=== PATIENT | male | born 1960 | race Caucasian/White ===

== ENCOUNTER → 2023-12-04 07:40 | Outpatient (REF) | payer OTHER, SELFPAY | LOC: RAD 07:40 | PROVIDERS: ATTENDING PHYSICIAN Thoracic Surgery (Cardiothoracic Vascular Surgery); FAMILY PHYSICIAN Physician Assistant | DX: J90 Pleural effusion, not elsewhere classified (principal) | CPT/HCPCS: 71260; Q9967 ==

== ENCOUNTER → 2024-12-23 06:27 | Outpatient (REF) | payer OTHER, SELFPAY | LOC: RAD 06:27 | PROVIDERS: ATTENDING PHYSICIAN Nurse Practitioner Family; FAMILY PHYSICIAN Family Medicine | DX: L08.9 Local infection of the skin and subcutaneous tissue, unspecified (principal) | CPT/HCPCS: 73630 ==

== ENCOUNTER 2024-12-23 21:41 | Inpatient (IN) | payer OTHER, SELFPAY ==
[2024-12-23 13:48] VITALS: BMI 26.7
[2024-12-23 13:54] VITALS: BP 132/79
[2024-12-23 14:10] LABS: % Basophils 1.1 % (0-2); % Eosinophils 2.9 % (0-6); % Immature Granulocytes 0.2 % (0-0.5); % Lymphocytes 26.8 % (20.5-51.1); % Monocytes 5.7 % (1.7-9.3); % Neutrophils 63.3 % (42.2-75.2); Absolute Basophils 0.1 10^3/uL (0-0.2); Absolute Eosinophils 0.2 10^3/uL (0-0.7); Absolute Lymphocytes 2.3 10^3/uL (1.2-3.4); Absolute Monocytes 0.5 10^3/uL (0.1-0.6); Absolute Neutrophils 5.3 10^3/uL (1.4-6.5); Hematocrit 37.5 % (39.0-52.0); Hemoglobin 12.7 g/dL (13.0-18.0); Mean Corp Hgb Conc. 33.9 g/dL (33.0-37.0); Mean Corpuscular Volume 82.8 fL (80.0-94.0); Mean Platelet Volume 11.3 fL (7.4-10.4); Nucleated Red Blood Cells % 0 % (-); Platelet Count 244 10^3/uL (130-400); Red Blood Cell Count 4.53 10^6/uL (4.70-6.10); Red Cell Dist. Width 12.1 % (11.5-14.5); White Blood Cell Count 8.4 10^3/uL (4.8-10.8)
[2024-12-23 14:33] LABS: ALT (SGPT) 19 U/L (0-50); AST (SGOT) 22 U/L (17-59); Albumin 4.1 g/dl (3.5-5.0); Alkaline Phosphatase 65 U/L (38-126); Blood Urea Nitrogen 31 mg/dl (9-20); Calcium 9.8 mg/dl (8.4-10.2); Carbon Dioxide 27 mmol/L (22-30); Chloride 106 mmol/L (98-107); Glucose 158 mg/dl (70-99); Potassium 3.9 mmol/L (3.5-5.1); Sodium 143 mmol/L (135-145); Total Bilirubin 0.4 mg/dl (0.2-1.3); eGFR 56.48
--- NOTE | 2024-12-23 17:01 | ED.GENMED ---
History of Present Illness
General
Chief Complaint: Skin Problem
Source: patient
Exam Limitations: none
Time Seen by Provider: 12/23/24 16:52
Nursing documentation reviewed up to this point in time: agreed with
History of Present Illness
History of Present Illness:
64-year-old male past medical history of hypertension diabetes presenting to the emergency department today with concerns of swelling worsening mainly over the past week but to some degree swollen over the past 2 weeks to the right fourth toe. Also
banged his toe yesterday. An outpatient x-ray showing a fracture and possible osteomyelitis. He denies systemic symptoms. Does have some ongoing pain. Has a chronic numbness to the area as well.
Past History
Past History
ED Past Medical History: HTN, Hypercholesterolemia and NIDDM
Social History
Tobacco: Former smoker
Alcohol: Occasional
Drug: None
Personal:
Living: with family
Employment: Other (the patient is a tractor-ready mix truck driver who findsthat taking metformin causes him diarrhea which is why he fails to take it.)
Review of Systems
Review of Systems
Allergies reviewed?: Yes
All Other Systems: ROS reviewed and negative except as documented in HPI and ROS
Phy Exam
Physical Exam
Physical Exam:
GENERAL: Alert , in no apparent distress
EYE: pupils equal and reactive
NECK: Supple, no significant adenopathy.
ENT: o/p clr, mmm.
CARDIAC: Regular rate and rhythm .
LUNGS: Clear breath sounds bilaterally, no acute respiratory distress, no wheezes/rales/rhonchi
ABDOMEN: Soft, without focal tenderness, no r/g, no cvat
NEUROLOGICAL: Alert and oriented, no focal neuro deficits
SKIN: Warm and dry, skin intact.
MUSCULOSKELETAL: Swelling tenderness to the right foot mainly surrounding the right fourth toe some extending into the foot itself.
PSYCH: Normal and appropriate interaction.
Course
Orders/Labs/Results
Orders:
Orders
12/23/24 14:01
Complete Blood Count/With Diff Urgent
Comprehensive Metabolic Panel Urgent
12/23/24 17:00
Piperacillin/Tazo 4.5 Gram [Zosyn] 4.5 gram in 100 ml IV NOW
12/23/24 17:01
Vancomycin [Vancocin] 2,000 mg 0.9% Sodium Chloride 500 ml [Nss] 500 ml IV NOW
12/23/24 17:05
Blood Culture Q30M
MIRTHA Source: Blood/Venous
Specimen Description:
Blood Culture Q30M
MIRTHA Source: Blood/Venous
Specimen Description:
12/23/24 17:17
Vasc Ltd W JASON Urgent
Comment:
Reason For Exam: right leg JASON
Abnormal Lab Results
12/23/24
14:01
RBC 4.53 L 10^6/uL
(4.70-6.10)
Hgb 12.7 L g/dL
(13.0-18.0)
Hct 37.5 L %
(39.0-52.0)
MPV 11.3 H fL
(7.4-10.4)
BUN 31 H mg/dl
(9-20)
Creatinine 1.4 H mg/dL
(0.7-1.3)
Glucose 158 H mg/dl
(70-99)
12/23/24 14:01
12/23/24 14:01
Vital Signs
Initial and Last Documented VS:
Initial Vital Signs
Temp Pulse Resp BP Pulse Ox
98.2 F 77 16 132/79 98
12/23/24 13:54 12/23/24 13:54 12/23/24 13:54 12/23/24 13:54 12/23/24 13:54
Last Documented Vital Signs
Temp Pulse Resp BP Pulse Ox
98.2 F 77 16 132/79 98
12/23/24 13:54 12/23/24 13:54 12/23/24 13:54 12/23/24 13:54 12/23/24 13:54
MDM/Problems Addressed
MDM/Problems Addressed:
64-year-old male presenting to the emergency department today with concerns of swelling discomfort to the right fourth toe worsening over the past 2 weeks. Also hit his toe the other day and had an x-ray as an outpatient showing a potential
fracture as well as possible osteo-. Case discussed with podiatry and admitted for IV antibiotics
*Critical Care Note
Total Time (30-74mins, 75-104mins- exclusive of procedures): Not Applicable
ED Attending Note
-
Portions of this chart may have been created with voice recognition software.� Occasional wrong word or��sound alike� substitutions may have occurred due to the inherent limitations of voice recognition software.
Discharge Plan
Departure
Patient Disposition: Admit
Date of Disposition: 12/23/24
Time of Disposition: 17:19
Admit to: Med/Surg
Admit to doctor: Gauravy
Presentation/result/management discussed w/ accepting MD/DO: Hospitalist
Patient with high blood pressure during this ER visit?: No
Condition: Good
Covid-19: Not Applicable
Discharge Problem:
Acute osteomyelitis of toe
Prescriptions:
No Action
metformin 1,000 mg Tablet
1,000 mg PO BID@0800,1700
glipizide 10 mg Tablet
10 mg PO BID@0800,1700
aspirin 81 mg Tablet,Delayed Release (Dr/Ec)
81 mg PO DAILY
atorvastatin 10 mg Tablet
10 mg PO HS
lisinopril 20 mg Tablet
20 mg PO BID@0800,1700 Qty: 60 0RF
benzonatate 100 mg Capsule
100 mg PO TIDPRN PRN (Reason: cough) Qty: 30 0RF
Ertapenem [Invanz] 1000 MG
0.9% Sodium Chloride [Nss] 50 ML
120 mls/hr IV Q24H
Reason for use: Infection
Ordered By: Nubia Umaña MD
Last Taken: Unknown
oxycodone 5 mg tablet
5 mg PO Q8H PRN (Reason: moderatepain) Qty: 20 0RF
Interventions
Interventions:
*Risk Screen - Suicide Last Done: 12/23/24 13:54
*General Assessment Last Done: 12/23/24 13:54
*Neglect/Abuse Screening Last Done: 12/23/24 13:54
*ED COVID-19 Vaccine History Last Done: 12/23/24 13:54
Discharge Date and Time
Print Language: BURUNDIAN
[2024-12-23] MEDS: ZOSYN 100 IV (17:08)
[2024-12-23] MEDS: VANCOCIN 540 MG IV (17:38)
--- NOTE | 2024-12-23 18:23 | W.CS.POD ---
Consult Summary - Podiatry
-
64-year-old male past medical history of hypertension diabetes presenting to the emergency department today with increasing swelling, worsening of the Rt 4th toe ,mainly over the past week, He states that he wears steel toe shoes which may have
caused the problem, HE noticed this small ulcer about 2 to 3 wks wks ago , HE saw his PCP and was told to get admitted to the hosp for management. He is diabetic for over 10 yrs and he states that his HbA1c around 6.5. HE takes PO meds for diabetes.
He denies any fever, chills. HE has some drainage and edematous Rt 4th toe
Reviewed PMH, meds and allergies
Exam ; Rt foot edematous
Rt foot diminished pedal pulses probably due to edema
Rt 4th toe dorsal aspect with purulent draining ulcer, edematous toe,
No other open ulcerations noted.
WBC count is WNL
Xrays showing Rt 4th toe middle phalanx erosive changes, possible osteomyelitis
A/p: Diabetic ulcer with Rt 4th ht toe osteomyelitis
rt foot cellulitis
Plan : Patient evaluated
Pending Non invasive vascular studies
Will request ID consult
Discussed with patient for possible debridement and assisted abx due to bone infection
Will schedule him for debridement and bone cultures after medical clearance
[2024-12-23 19:37] VITALS: BP 172/79
--- NOTE | 2024-12-23 19:38 | EDRN ---
Report received, introduced myself to patient, he walked into restroom without difficulty, resting comfortably with family at bedside, waiting on admission
--- NOTE | 2024-12-23 20:21 | HPS.HSE ---
Addendum entered and electronically signed by Nato Coombs MD 12/23/24 22:18:
see updated note
Original Note:
Family Physician
-
Family Physician: Danny Verde
Chief Complaint
-
right 4th toe pain and swelling
History of Present Illness
Patient is a 64-year-old male with past medical history significant for hypertension and DM II who presented to [facility] ED for evaluation of right fourth toe pain and swelling. Patient reports that he started with a small area on right 4th toe
approximately 2 weeks ago, he was cleaning wound with peroxide and using Neosporin and keeping as clean as possible. He states he believes to open area started from steel tip boots he wears from rubbing. He reports that this week he noticed
increased swelling to the toe and foot so called and made appointment with primary who sent him for foot x-ray and prescribed antibiotics. He states she called him this afternoon when she got results from x-ray and instructed him to report to ED for
evaluation and treatment. Patient denies any fever, chills, cough, shortness of breath, chest pain, nausea, vomiting, diarrhea or urinary symptoms.
Medical History
Past Medical History
Past Medical History: Reports Other
Additional Past Medical History:
essential hypertension
DM-II
Past Surgical History: Reports Other
Additional Past Surgical History:
lipoma [address], thoracentesis 07/26/23 and 07/28/23, Culture was negative for bacterial growth. Cytology was also negative, lytic therapy twice
Loculated Left effusion/probable empyema S/P 10F pigtail placement by IR, 09/16/23, upsized to 16F by IR 09/20/23 09/16/23
Social History
Tobacco: Former Smoker (quit 15 years ago )
Alcohol: None
Drug: None
Personal:
Living: With Family
Employment: Employed
Family History
Family History: Not pertinent
Allergies / Home Medications
Allergies reflects when Allergies were last updated in [facility].
Home Medications with original date entered in [facility]
Allergy/Medication List:
Allergies
Allergy/AdvReac Type Severity Reaction Status Date / Time
No Known Allergies Allergy Verified 12/23/24 13:58
Home Medications
metformin 1,000 mg tablet 1,000 mg PO BID@0800,1700 Diabetes 05/23/11
aspirin 81 mg tablet,delayed release 81 mg PO DAILY Blood Clot Prevention/Tx 07/25/23
atorvastatin 10 mg tablet 10 mg PO HS High Cholesterol 07/25/23
glipizide 10 mg tablet 10 mg PO BID@0800,1700 Diabetes 07/25/23
lisinopril 20 mg-hydrochlorothiazide 25 mg tablet 1 tab PO BID 12/23/24
testosterone 1 % (50 mg/5 gram) transdermal gel packet 1 packet transdermal DAILY 12/23/24
Review of Systems
-
History Source: Patient
Musculoskeletal: Reports Other (right 4th toe pain and swelling )
Physical Exam
Vital Signs
Vital Signs
Temp Pulse Resp BP Pulse Ox
98.2 F 60 16 172/79 99
12/23/24 13:54 12/23/24 19:37 12/23/24 19:37 12/23/24 19:37 12/23/24 19:37
Physical Exam
General: Well Developed, Well Nourished, No Apparent Distress, Comfortable and Conversant
HEENT: NormoCephalic, Moist mucous membranes, Atraumatic, [place] Conjunctivae, Nose Appears Normal and Ears Appear Normal
Respiratory: Clear
Cardiac: S1/S2 and Regular Rhythm; No Murmur or Rub
Breast: Deferred by me
GI: Soft, Non Tender, Non Distended and Normal Bowel Sounds; No Organomegaly
Rectal: Deferred by Provider
Genito-urinary: Deferred by me
Musculoskeletal: No Clubbing, No Cyanosis and Edema, Right Lower Extremity (right foot and toes )
Skin: Lesions (right 4th toe wound with surrounding erythema and is edematous )
Neuro: Awake, Alert, AO x 3 and Nonfocal/grossly intact
Psych: Calm and Intact Judgment/Insight
Laboratory Results
-
12/23/24 14:
12/23/24 14:01
Laboratory Results
Total Bilirubin 0.4 mg/dl (0.2-1.3) 12/23/24 14:
AST 22 U/L (17-59) 12/23/24 14:
ALT 19 U/L (0-50) 12/23/24 14:
Alkaline Phosphatase 65 U/L (38-126) 12/23/24 14:01
Data Reviewed
-
Diagnostic Radiology: Report Reviewed by me (Rt Foot: Mildly displaced fracture through the distal aspect of the mid right fourth phalanx. There appears to be some erosions involving distal aspect of the fourth toe, raising concern for
osteomyelitis. Significant soft tissue edema of the right fourth toe. Questionable well-corticated erosion a)
Lab Data: Labs Reviewed by me (WBC 8.4, Neut 63.3, BUN 31, Creat 1.4)
Impression/Plan
-
IMPRESSION/PLAN:
#right 4th toe pain and swelling
#cellulitis vs. osteomyelitis
Rt foot x-ray: Mildly displaced fracture through the distal aspect of the mid right fourth phalanx. There appears to be some erosions involving distal aspect of the fourth toe, raising concern for osteomyelitis.
Significant soft tissue edema of the right fourth toe.
Questionable well-corticated erosion along the medial aspect of the first metatarsal head, suggesting it maybe chronic in nature and related to gouty arthropathy. Mild narrowing of the right first
MTP joint.
Blood Cx: pending
- Admit to med/surg
- Consult Podiatry
- Consult ID
- IV antibiotics
- NPO at midnight for possible OR
#acute kidney injury
BUN 31, Creat 1.4
- IVF
- monitor BMP
#essential hypertension
- continue lisinopril- HCTZ
#DM II
- hold glipizide and metformin
- continue atorvastatin
- AccuCheck AC & HS
- SSI
Code status: full code
DVT prophylaxis: SCDs
--- NOTE | 2024-12-23 21:00 | EDRN ---
Admitting provider at bedside working on admission
--- NOTE | 2024-12-23 21:53 | EDRN ---
No delay sent to the floor
--- NOTE | 2024-12-23 22:18 | W.PN.UPDATE ---
Update Note
Progress Note Update
I saw and examined the patient.
The POULTRY CULLER or PA's note was reviewed and I agree with the note.
HPI
64 Diabetic M for evaluation of right fourth toe pain and swelling
Vital Signs
Temp Pulse Resp BP Pulse Ox
98.2 F 60 16 172/79 99
12/23/24 13:54 12/23/24 19:37 12/23/24 19:37 12/23/24 19:37 12/23/24 19:37
PE
General: No Apparent Distress
HEENT: Atraumatic
Respiratory: Clear
Cardiac: S1/S2 and RRR
Breast: Deferred by me
GI: Soft, Non Tender, Non Distended
Rectal: Deferred by Provider
Deferred by me
MS: Edema, Right Lower Extremity (right foot and toes )
Skin:Rt 4th toe wound with surrounding erythema and is edematous )
Neuro: Awake, Alert, AO x 3 and Nonfocal/grossly intact
Psych: Calm and Intact Judgment/Insight
Labs
09/24/23 12/23/24
05:01 14:01
WBC 8.4
Hgb 12.7 L
Plt Count 244
BUN 31 H
Creatinine 0.7 1.4 H
eGFR 56.48
Glucose 158 H
Rt foot x-ray:
- Mildly displaced fracture through the distal aspect of the mid right fourth phalanx. T
- here appears to be some erosions involving distal aspect of the fourth toe, raising concern for osteomyelitis.
- Significant soft tissue edema of the right fourth toe.
ASSESSMENT & PLAN
Diabetic foor infection due to Rt 4th toe cellulitis complicate with OM
- BCx pending
- First dose of IV vancomycin and Zosyn per ER - hold further ABx till see by ID
- NPO at midnight for possible OR
- Digital Marketing Assistant consulted and ordered Non invasive vascular imaging
- ID consult
KALLI with BUN 31, Creat 1.4
- IV NS
- trench Cr
Essential HTN
- c/w lisinopril- HCTZ
DMT2
- hold glipizide and metformin
- add ISS low
- AccuCheck AC & HS
HLD
- continue atorvastatin
DVT prophylaxis: SCDs
Full code
IP MS
[2024-12-23 22:20] VITALS: BP 165/88; BMI 26.1
[2024-12-23 22:25] LABS: Glucose - Point of Care 115 mg/dl (70-99)
[2024-12-23] MEDS: NSS 1000 IV (22:42)
[2024-12-23] MEDS: LIPITOR 10 MG PO (22:42)
[2024-12-23 23:37] VITALS: BP 149/72
--- NOTE | 2024-12-23 23:47 | PTCARENOTE ---
Receive pt from ER. Pt alert oriented X3, calm, in no distress. Pt assisted to his bed, steady gait. Pt oriented to the room, call paredes within reach. Pt denies pain. Right 4th toe swelling, with a diabetic ulcer, no drainage noted, no redness. VSS
(T=98, HR=59, RR=18, MY=300/72, SpO2=98% on RA). IVFs infusing as per order. Will continue to monitor the pt.
[2024-12-24] VITALS (12 sets, daily range): BP systolic 12–167; BP diastolic 53–87
[2024-12-24 05:05] LABS: Glucose - Point of Care 108 mg/dl (70-99)
[2024-12-24 06:57] LABS: Hematocrit 37.2 % (39.0-52.0); Hemoglobin 12.5 g/dL (13.0-18.0); Mean Corp Hgb Conc. 33.6 g/dL (33.0-37.0); Mean Corpuscular Hgb 27.8 pg (27.0-31.0); Mean Corpuscular Volume 82.9 fL (80.0-94.0); Mean Platelet Volume 11.1 fL (7.4-10.4); Platelet Count 215 10^3/uL (130-400); Red Blood Cell Count 4.49 10^6/uL (4.70-6.10); Red Cell Dist. Width 12.1 % (11.5-14.5); White Blood Cell Count 5.6 10^3/uL (4.8-10.8)
[2024-12-24 07:26] LABS: Blood Urea Nitrogen 23 mg/dl (9-20); Calcium 9.3 mg/dl (8.4-10.2); Carbon Dioxide 23 mmol/L (22-30); Chloride 106 mmol/L (98-107); Estimated Creatinine Clearance 100 ml/min; Glucose 138 mg/dl (70-99); Potassium 4.1 mmol/L (3.5-5.1); Sodium 139 mmol/L (135-145); eGFR > 60.00
[2024-12-24] MEDS: ZESTRIL 20 MG PO ×2 (08:44→21:26)
[2024-12-24] MEDS: ASPIR LOW (ENTERIC COATED) 81 MG PO (08:44)
--- NOTE | 2024-12-24 09:26 | W.PN.HOSP.TC ---
Addendum entered and electronically signed by Narinder Carrera MD 12/24/24 15:44:
Discussed with podiatry today and he can go for surgery from medical standpoint.
He has no contraindications such as SC, severe valvulopathy, arrhythmias, or heart failure. He has good exercise tolerance without exertional cp or dyspnea. His RCRI class I with 3.9% risk of , SC, or cardiac arrest. If he uses insulin
presurgery his risk goes up to 6%. I'll order stat EKG preop and nothing else needed.
Original Note:
Today's Communication/Plan
-
IV antibiotics. Podiatry reeval. ID eval.
Assessment / Plan
Assessment / Plan
Physical Exam
General: Well Developed, Well Nourished, No Apparent Distress, Comfortable and Conversant
HEENT: NormoCephalic, Moist mucous membranes, Atraumatic, [place] Conjunctivae, Nose Appears Normal and Ears Appear Normal
Respiratory: Clear
Cardiac: S1/S2 and Regular Rhythm; No Murmur or Rub
Breast: Deferred by me
GI: Soft, Non Tender, Non Distended and Normal Bowel Sounds; No Organomegaly
Rectal: Deferred by Provider
Genito-urinary: Deferred by me
Musculoskeletal: No Clubbing, No Cyanosis and Edema, Right Lower Extremity (right foot and toes )
Skin: Lesions (right 4th toe wound with surrounding erythema and is edematous )
Neuro: Awake, Alert, AO x 3 and Nonfocal/grossly intact
Psych: Calm and Intact Judgment/Insight
A/P:
#right 4th toe pain and swelling
#cellulitis vs. osteomyelitis
Rt foot x-ray: Mildly displaced fracture through the distal aspect of the mid right fourth phalanx. There appears to be some erosions involving distal aspect of the fourth toe, raising concern for osteomyelitis.
Significant soft tissue edema of the right fourth toe.
Questionable well-corticated erosion along the medial aspect of the first metatarsal head, suggesting it maybe chronic in nature and related to gouty arthropathy. Mild narrowing of the right first
MTP joint.
Blood Cx: pending
- Admit to med/surg
- Consult Podiatry
- Consult ID
- IV antibiotics
- NPO as recommended by podiatry
#acute kidney injury
BUN 31, Creat 1.4
- IVF
- monitor BMP
#essential hypertension
- continue lisinopril- HCTZ
#DM II
- hold glipizide and metformin
- continue atorvastatin
- AccuCheck AC & HS
- SSI
Code status: full code
DVT prophylaxis: SCDs
Total time spent on today's encounter was 52 minutes which included time spent in counseling the patient/family regarding diagnosis and treatment plan as listed above, goals of care, and symptom management. Case was discussed with nursing staff,
specialists, and care coordinators/case management. All labs and imaging personally reviewed by me. Remainder the time spent in detailed review of previous records, lab data, imaging, and other medical provider documentation.
Anticipated Discharge: > 48 hours
Subjective/Interval History
-
Date of Service: December 24, 2024
Patient denies any chest pain shortness of breath. Afebrile
Objective Data
-
Labs:
Laboratory Results
12/24/24 12/24/24
06:43 06:44
WBC 5.6
Hgb 12.5 L
Hct 37.2 L
Plt Count 215
Sodium 139
Potassium 4.1
Chloride 106
Carbon Dioxide 23
BUN 23 H
Creatinine 0.9
Glucose 138 H
Calcium 9.3
Vital Signs:
Vital Signs
Temp Pulse Resp BP Pulse Ox
98 F 63 20 149/77 98
12/24/24 07:50 12/24/24 07:50 12/24/24 07:50 12/24/24 07:50 12/24/24 07:50
I&O
12/23/24 12/24/24 12/25/24
06:59 06:59 06:59
Intake Total 600 / 600
Balance 600 / 600
[2024-12-24 12:27] LABS: Glucose - Point of Care 116 mg/dl (70-99)
--- NOTE | 2024-12-24 13:37 | CON.ID ---
Consultation
-
Date/Time Consultation Requested: 12/23/24 22:34
Date/Time Consultation Performed: 12/24/24 13:38
Requesting Provider: Lacey SCHAFFER
Performing Provider: Dr Edwards
Reason for Consultation: Diabetic foor infection due to Rt 4th toe cellulitis complicate with OM
Chief Complaint / Past History
Chief Complaint
right 4th toe pain and swelling
History of Present Illness
Mr Kohler is a 64-year-old male with past medical history of DM II who presented here on 12/23 for right fourth toe pain and swelling. It started with a small area on right 4th toe ~2 weeks ago after he started wearing steel toed boots which were
rubbing the area. He has been cleaning wound with hydrogen peroxide and Neosporin. as clean as possible. Then this week he noticed increased swelling to the toe and foot, saw his PCP who sent him for foot x-ray and prescribed unknown antibiotics.
X-ray resulted and PCP instructed him to report to ED for evaluation and treatment. Patient denies any fever, chills, cough, shortness of breath, chest pain, nausea, vomiting, diarrhea or urinary symptoms.
Since arrival here he has been afebrile, bp stable, WBC count 5.6, hgb 12.5, plt 215, no L shift, cr on arrival 1.4 now 0.9, a1c pending, lfts wnl, 12/23 XR foot: Mildly displaced fracture through the distal aspect of the mid right fourth phalanx.
There appears to be some erosions involving distal aspect of the fourth toe, raising concern for osteomyelitis. blood cultures x2 in progress, JASON scheduled, for possible debridement.
Past History
Additional Past Medical History:
hypertension
DM-II
Additional Past Surgical History:
lipoma [address], thoracentesis 07/26/23 and 07/28/23, Culture was negative for bacterial growth. Cytology was also negative, lytic therapy twice
Loculated Left effusion/probable empyema S/P 10F pigtail placement by IR, 09/16/23, upsized to 16F by IR 09/20/23 09/16/23
Allergy History:
No Known Allergies Allergy (Verified 12/23/24 13:58)
Medications Reviewed: Yes
Social History
Tobacco: Former Smoker (wont comment on pack year history, quit 15 years ago)
Alcohol: None
Drug: None
Family History
Family History: Not Pertinent
Review of Systems
Review of Systems
General: Negative Fever or Chills
All systems: All other systems were reviewed and were negative
Vital Signs
Temp Pulse Resp BP Pulse Ox
98 F 63 20 149/77 98
12/24/24 07:50 12/24/24 07:50 12/24/24 07:50 12/24/24 07:50 12/24/24 07:50
Physical Exam
Physical Exam
Constitutional: No Acute Distress
Cardiovascular: Regular Rate and S1/S2; Negative Murmur or Rub
Pulmonary: Clear and Symmetric; Negative Wheezes, Rales or Rhonchi
Gastrointestinal: Soft, Non Tender, Non Distended and Normal Bowel Sounds
Extremities: Other (swollen R 4th toe)
Skin: Warm and Dry; Negative Rash or Jaundice
Wound: Other (swelling, no erythema of the right 4th digit, no tenderness, small wound noted)
Lab / Diagnostic Study Results
12/24/24 06:44
12/24/24 06:43
Abs Immat Gran (auto) 0.0 10^3/uL (0-0.05) 12/23/24 14:01
Absolute Neuts (auto) 5.3 10^3/uL (1.4-6.5) 12/23/24 14:01
Absolute Lymphs (auto) 2.3 10^3/uL (1.2-3.4) 12/23/24 14:01
Absolute Monos (auto) 0.5 10^3/uL (0.1-0.6) 12/23/24 14:01
Absolute Basos (auto) 0.1 10^3/uL (0-0.2) 12/23/24 14:01
Immature Gran % 0.2 % (0-0.5) 12/23/24 14:
Neutrophils % 63.3 % (42.2-75.2) 12/23/24 14:
Lymphocytes % 26.8 % (20.5-51.1) 12/23/24 14:
Monocytes % 5.7 % (1.7-9.3) 12/23/24 14:
Eosinophils % 2.9 % (0-6) 12/23/24 14:
Basophils % 1.1 % (0-2) 12/23/24 14:01
Microbiology Results
Micro:
12/23/24 17:05 Blood Culture - Pending
Blood/Venous
12/23/24 17:05 Blood Culture - Pending
Blood/Venous
Assessment / Plan
Cellulitis of the right 4th toe; possible diabetic foot infection
Possible Osteomyelitis
- blood cultures x2 are in progress
- JASON is planned
- a1c pending
- start unasyn
- appreciate podiatry
[2024-12-24] MEDS: NSS 1000 IV ×2 (13:52→18:29)
[2024-12-24 13:54] LABS: Glycohemoglobin (HgbA1c) 6.6 % (4.0-5.6)
[2024-12-24] MEDS: UNASYN IV ×2 (14:44→21:26)
--- NOTE | 2024-12-24 15:04 | W.PN.POD ---
Today's Communication
Today's Communication
Scheduled for RT 4th toe middle phalanx debridement today
Assessment / Plan
-
A/P Diabetic ulcer with Rt 4th toe middle phalanx osteomyelitis
rt foot cellulitis - resolving well
Plan : Patient evaluated
Pending Non invasive vascular studies
Appreciate ID consult
Requested vascular evaluation
D/W hosp service for OR clearance
Scheduled him for RT 4th toe bone debridement today
Discussed with patient about the surgical bone debridement of the 4th toe and possible halfway abx due to bone infection, no guarantees given to save the toe , discussed all risks of non healing, reinfection, non healing, more surgical resections
discussed, Patient understands and agrees to proceed with surgery
Obtained consent
Podiatry will follow
Subjective
Chief Complaint
Right 4th toe osteomyelitis.
Subjective
Patient seen at bedside, doing well, well improved Rt foot edema and decreased edema and redness to Rt 4th toe
Objective
Temp Pulse Resp BP Pulse Ox
98 F 63 20 149/77 98
12/24/24 07:50 12/24/24 07:50 12/24/24 07:50 12/24/24 07:50 12/24/24 07:50
12/24/24 06:44
12/24/24 06:43
Vital Signs and Lab results were reviewed.
Rt foot pedal pulses triphasic with Doppler
Rt foot decreased edema, Rt 4th toe resolved erythema, decreased purulence, No exposed bone
--- NOTE | 2024-12-24 16:56 | W.SUR.POST ---
Surgical Immediate Post Op
Note
Pre Op Diagnosis: Right 4th toe middle phalanx osteomyelitis
Post Op Diagnosis: Same as above
Procedure Performed: Right 4th toe middle phalanx bone resection
Primary Surgeon: Dr. Baxter DP
Secondary Surgeons: None
Anesthesia: MAC with local block
Estimated Blood Loss: 2cc's
Fluids: none
Drains/Shunts: None
Specimens/Cultures: Bone form Rt 4th toe middle phalanx, aerobic and anaerobic cultures
Doppler/Duplex/Angio (Y/N): N
Complications: None
Operative Findings: completely fragmented eroded Rt 4th toe middle phalanx
PT stable in PACU with stable vital signs and intact vascular status to Rt foot
--- NOTE | 2024-12-24 16:56 | CM ---
Alert awake oriented patient who lives with his Juany who lives in a 1 story home with 1 step to enter.He is independent in driving and in all activities of daily living.He was offered VN he declined need.
No VN hx / No SNF history
Pharmacy [facility] [place]
PCP DR Danny Verde
PLAN Home Declined VN
[2024-12-24 17:12] LABS: Glucose - Point of Care 94 mg/dl (70-99)
--- NOTE | 2024-12-24 17:46 | SUR.OPER ---
received from PACU in bed. awake and alert. denies any discomfort. reviewed post op activity restrictions. voiced understanding- urinal at bedside. vitals noted. call paredes in reach. dressing dry and intact to right foot. good CMS to right foot. plan
of care on going
[2024-12-24 17:55] LABS: Glucose - Point of Care 100 mg/dl (70-99)
[2024-12-24 21:11] LABS: Glucose - Point of Care 229 mg/dl (70-99)
[2024-12-24] MEDS: LIPITOR 10 MG PO (21:27)
[2024-12-25] MEDS: UNASYN IV ×4 (02:21→20:29)
[2024-12-25 03:50] VITALS: BP 141/70
[2024-12-25] MEDS: NSS 1000 IV (05:53)
--- NOTE | 2024-12-25 07:25 | W.PN.HOSP.TC ---
Today's Communication/Plan
-
Antibiotics
Assessment / Plan
Assessment / Plan
Physical exam:
General: Well Developed, Well Nourished and No Apparent Distress
HEENT: Normocephalic, Atraumatic and Moist Mucous Membranes
Respiratory: Clear to Auscultation; Negative Wheezes, Rales or Rhonchi
Cardiac: Regular Rhythm and S1/S2
GI: Soft, Nontender and Nondistended
Musculoskeletal: No Clubbing, No Cyanosis and No Edema. Postop findings on right foot.
Neuro: Awake, Alert and Oriented
Psych: Calm
A/P:
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
On IV Unasyn
Blood cultures no growth
Status post right 4th toe middle phalanx bone resection and primary closure by podiatry.
Podiatry consulted vascular surgery and plan to obtain baseline arterial studies
PT eval postop
Preop eval:
Did preop evaluation yesterday and he was okay to go for surgery.
Reviewed EKG.
Acute kidney injury:
Stop IV fluid
Avoid nephrotoxic
Continue to monitor renal function
Hypertension:
Continue lisinopril and hydrochlorothiazide
Hyperlipidemia:
Continue atorvastatin 10 mg p.o. nightly
Diabetes mellitus type 2:
Continue insulin sliding scale
Restart metformin
Monitor blood sugars and adjust medications accordingly
DVT prophylaxis:
Start Lovenox SQ
CODE STATUS:
Full code
Total time spent on today's encounter was 52 minutes which included time spent in counseling the patient/family regarding diagnosis and treatment plan as listed above, goals of care, and symptom management. Case was discussed with nursing staff,
specialists, and care coordinators/case management. All labs and imaging personally reviewed by me. Remainder the time spent in detailed review of previous records, lab data, imaging, and other medical provider documentation.
Anticipated Discharge: Within 24 hours
Subjective/Interval History
-
Date of Service: December 25, 2024
No chest pain or shortness of breath. Afebrile
Objective Data
-
Labs:
Laboratory Results
12/25/24
06:57
WBC Pending
Hgb Pending
Hct Pending
Plt Count Pending
Sodium Pending
Potassium Pending
Chloride Pending
Carbon Dioxide Pending
BUN Pending
Creatinine Pending
Glucose Pending
Calcium Pending
Total Bilirubin Pending
AST Pending
ALT Pending
Alkaline Phosphatase Pending
Vital Signs:
Vital Signs
Temp Pulse Resp BP Pulse Ox
97.8 F 62 19 141/70 97
12/25/24 03:50 12/25/24 03:50 12/25/24 03:50 12/25/24 03:50 12/25/24 03:50
I&O
12/24/24 12/25/24 12/26/24
06:59 06:59 06:59
Intake Total 600 / 600 2200 / 2200
Output Total 1600 / 1600
Balance 600 / 600 600 / 600
[2024-12-25 07:31] LABS: % Basophils 0.5 % (0-2); % Immature Granulocytes 0.4 % (0-0.5); % Lymphocytes 12.9 % (20.5-51.1); % Monocytes 6.8 % (1.7-9.3); % Neutrophils 79.4 % (42.2-75.2); Absolute Lymphocytes 1.1 10^3/uL (1.2-3.4); Absolute Monocytes 0.6 10^3/uL (0.1-0.6); Absolute Neutrophils 6.6 10^3/uL (1.4-6.5); Hemoglobin 13.2 g/dL (13.0-18.0); Mean Corp Hgb Conc. 33.8 g/dL (33.0-37.0); Mean Corpuscular Hgb 27.8 pg (27.0-31.0); Mean Corpuscular Volume 82.3 fL (80.0-94.0); Mean Platelet Volume 11.2 fL (7.4-10.4); Nucleated Red Blood Cells % 0 % (-); Platelet Count 231 10^3/uL (130-400); Red Blood Cell Count 4.74 10^6/uL (4.70-6.10); Red Cell Dist. Width 11.9 % (11.5-14.5); White Blood Cell Count 8.3 10^3/uL (4.8-10.8)
[2024-12-25 07:35] LABS: ALT (SGPT) 17 U/L (0-50); AST (SGOT) 17 U/L (17-59); Albumin 3.6 g/dl (3.5-5.0); Alkaline Phosphatase 59 U/L (38-126); Blood Urea Nitrogen 20 mg/dl (9-20); Calcium 9.2 mg/dl (8.4-10.2); Carbon Dioxide 23 mmol/L (22-30); Chloride 107 mmol/L (98-107); Estimated Creatinine Clearance 100 ml/min; Glucose 152 mg/dl (70-99); Potassium 4.2 mmol/L (3.5-5.1); Sodium 138 mmol/L (135-145); Total Bilirubin 0.5 mg/dl (0.2-1.3); Total Protein 6.1 g/dl (6.3-8.2); eGFR > 60.00
[2024-12-25 07:36] VITALS: BP 160/76
[2024-12-25 08:13] LABS: Glucose - Point of Care 141 mg/dl (70-99)
--- NOTE | 2024-12-25 09:27 | CON.VAS ---
Consultation
Consultation Request
Date/Time Consultation Requested: 12/24/24
Date/Time Consultation Performed: 12/25/24
Requesting Provider: Vee
Performing Provider: Te
Reason for Consultation: Osteo right foot
Medical History
-
Chief Complaint: Right foot infection; osteomyelitis
History of Present Illness:
64 yo male
DM
Hyperchol
HTN
Right foot infection evolving over past 2 weeks
Taken by podiatry for debridement yesterday
On IV ABX
Asked to see for vascular eval
No prior vascular issues
No claudication
Never seen vascular in the past
Allergies / Home Medications
Allergy/AdvReac Type Severity Reaction Status Date / Time
No Known Allergies Allergy Verified 12/23/24 13:58
�Medication �Instructions �Recorded �Confirmed �Type
metformin 1,000 mg tablet 1,000 mg PO BID@0800,1700 Diabetes 05/23/11 12/23/24 History
aspirin 81 mg tablet,delayed 81 mg PO DAILY Blood Clot 07/25/23 12/23/24 History
release Prevention/Tx
atorvastatin 10 mg tablet 10 mg PO HS High Cholesterol 07/25/23 12/23/24 History
glipizide 10 mg tablet 10 mg PO BID@0800,1700 Diabetes 07/25/23 12/23/24 History
lisinopril 20 1 tab PO BID 12/23/24 12/23/24 History
mg-hydrochlorothiazide 25 mg tablet
testosterone 1 % (50 mg/5 gram) 1 packet transdermal DAILY 12/23/24 12/23/24 History
transdermal gel packet
Physical Exam
Vital Signs
Temp Pulse Resp BP Pulse Ox
97.8 F 62 19 141/70 98
12/25/24 03:50 12/25/24 03:50 12/25/24 03:50 12/25/24 03:50 12/25/24 09:25
Lab Results
12/25/24 06:57
12/25/24 06:57
Physical Exam
General: Well Developed
HEENT: Normocephalic
Respiratory: Non Labored Respirations
Skin: Warm
Neuro: AO x 3
Psych: Calm
Pulses: Right Dorsalis Pedis: +2 (Palpable) and Right Posterior Tibial: +2 (Palpable)
Assessment / Plan
-
Palpable right pedal pulses.
Obtain baseline arterial studies in vascular lab but unlikely to require intervention given exam findings
Vinny Tiwari III, MD
Vascular Surgery
[facility]
[2024-12-25] MEDS: NOVOLOG FLEXPEN-LOW RESISTANCE SC (09:32)
--- NOTE | 2024-12-25 09:32 | W.PN.POD ---
Today's Communication
Today's Communication
Patient stable per podiatry,
Assessment / Plan
-
A/P : S/P Rt 4th toe middle phalanx bone resection POD #1
Diabetic ulcer with Rt 4th toe middle phalanx osteomyelitis
rt foot cellulitis - resolving well
Plan : Changed surgical dressings
applied adaptic, dry gauze dressings
Elevate Rt foot when at restCan use surgical shoe to Rt foot and wt bear to Rt heel
Ordered post op Rt foot xray
Pending vascular eval and any plan for work up
PT will follow up in my office after discharge for all post op care
Subjective
Chief Complaint
Right 4th toe acute osteomyelitis
Subjective
Patient seen at bedside, doing well, denies any pain in Rt 4th toe, minimal strike through in surgical dressings. HE states that he slept well. No fever, chills. Denies any calf pain
Objective
Temp Pulse Resp BP Pulse Ox
97.8 F 62 19 141/70 98
12/25/24 03:50 12/25/24 03:50 12/25/24 03:50 12/25/24 03:50 12/25/24 09:25
12/25/24 06:57
12/25/24 06:57
Vital Signs and Lab results were reviewed.
Rt foot resolved edema, erythema resolved. Rt 4th toe intact skin edges, intact sutures, no bleeding, no erythema,
Able to move all his toes
[2024-12-25] MEDS: ASPIR LOW (ENTERIC COATED) 81 MG PO (09:37)
[2024-12-25] MEDS: ZESTRIL 20 MG PO ×2 (09:37→20:29)
[2024-12-25] MEDS: FLUSH (NSS) 1 FLUSH IV ×2 (09:37→13:54)
[2024-12-25] MEDS: ORETIC 25 MG PO ×2 (09:38→20:28)
[2024-12-25 11:50] VITALS: BP 150/70
[2024-12-25 12:32] LABS: Glucose - Point of Care 165 mg/dl (70-99)
[2024-12-25] MEDS: NOVOLOG FLEXPEN-LOW RESISTANCE 300 UNITS SC (13:18)
[2024-12-25 15:14] VITALS: BP 145/62
--- NOTE | 2024-12-25 16:50 | PTCARENOTE ---
Pt AAO x3, JONES well, OOB in room/to BR without assistance; gait steady; denies weakness/dizziness with OOB activity. Pt with weight bearing RLE Rt heel; wears Darco shoe Rt foot when OOB. Circ/neuro check to RLE WNL. VSS. On room air- pulse ox
98%, no SOB noted. Abd soft, rounded, loki PO well. Void in BR without difficulty. Rt foot dsg D/I. Knee -high SCD's in place. Resting comfortably at present. Will continue to monitor.
[2024-12-25 16:52] LABS: Glucose - Point of Care 183 mg/dl (70-99)
[2024-12-25] MEDS: NOVOLOG FLEXPEN-LOW RESISTANCE 1 UNITS SC (18:16)
[2024-12-25] MEDS: LOVENOX 40 MG SC (18:16)
[2024-12-25] MEDS: LIPITOR 10 MG PO (21:10)
[2024-12-25 23:20] VITALS: BP 132/80
[2024-12-26] MEDS: UNASYN IV ×3 (02:03→13:34)
[2024-12-26 07:03] LABS: Hematocrit 37.8 % (39.0-52.0); Hemoglobin 13.1 g/dL (13.0-18.0); Mean Corp Hgb Conc. 34.7 g/dL (33.0-37.0); Mean Corpuscular Hgb 28.1 pg (27.0-31.0); Mean Corpuscular Volume 81.1 fL (80.0-94.0); Mean Platelet Volume 10.7 fL (7.4-10.4); Platelet Count 209 10^3/uL (130-400); Red Blood Cell Count 4.66 10^6/uL (4.70-6.10); Red Cell Dist. Width 11.9 % (11.5-14.5); White Blood Cell Count 6.1 10^3/uL (4.8-10.8)
[2024-12-26 07:29] VITALS: BP 161/78
[2024-12-26 07:35] LABS: Blood Urea Nitrogen 19 mg/dl (9-20); Calcium 9.5 mg/dl (8.4-10.2); Carbon Dioxide 25 mmol/L (22-30); Chloride 103 mmol/L (98-107); Estimated Creatinine Clearance 90 ml/min; Glucose 147 mg/dl (70-99); Potassium 4.2 mmol/L (3.5-5.1); Sodium 138 mmol/L (135-145); eGFR > 60.00
[2024-12-26 08:22] LABS: Glucose - Point of Care 136 mg/dl (70-99)
[2024-12-26] MEDS: ASPIR LOW (ENTERIC COATED) 81 MG PO (10:14)
[2024-12-26] MEDS: GLUCOPHAGE 1000 MG PO ×2 (10:14→17:19)
[2024-12-26] MEDS: NOVOLOG FLEXPEN-LOW RESISTANCE SC (10:14)
[2024-12-26] MEDS: ZESTRIL 20 MG PO ×2 (10:14→20:42)
[2024-12-26] MEDS: ORETIC 25 MG PO ×2 (10:15→20:48)
[2024-12-26 12:05] LABS: Glucose - Point of Care 213 mg/dl (70-99)
--- NOTE | 2024-12-26 12:28 | W.PN.POD ---
Today's Communication
Today's Communication
patient stable per podiatry to discharge home
Assessment / Plan
-
A/P : S/P Rt 4th toe middle phalanx bone resection POD #2
Diabetic ulcer with Rt 4th toe middle phalanx osteomyelitis
rt foot cellulitis - resolving well
Plan : Changed surgical dressings
applied adaptic, dry gauze dressings - uriel's daughter can do his dressing changes at home
Elevate Rt foot when at rest, Can use surgical shoe to Rt foot and wt bear to Rt heel
Ordered post op Rt foot xray - stable,resected most of the loose, infected middle phalanx
Reviewed Non Invasive vascular studies - JASON'S normal range, no focal stenosis or vascular disease
PT will follow up in my office after discharge for all post op care.
Subjective
Chief Complaint
Right 4th toe acute osteomyelitis
Subjective
Patient seen at bedside, doing well, denies any pain in Rt 4th toe, minimal strike through in surgical dressings. HE states that he slept well. No fever, chills. Denies any calf pain
Objective
Temp Pulse Resp BP Pulse Ox
98 F 61 18 161/78 98
12/26/24 07:29 12/26/24 07:29 12/26/24 07:29 12/26/24 07:29 12/26/24 07:29
12/26/24 06:45
12/26/24 06:45
Vital Signs and Lab results were reviewed.
Rt foot resolved edema, erythema resolved. Rt 4th toe intact skin edges, intact sutures, no bleeding, no erythema,
Able to move all his toes.
--- NOTE | 2024-12-26 12:46 | W.PN.HOSP.TC ---
Today's Communication/Plan
-
Discharge home today
Assessment / Plan
Assessment / Plan
Impression:
Patient is a 64-year-old male with past medical history significant for hypertension and DM II who presented to [facility] ED for evaluation of right fourth toe pain and swelling. Patient reports that he started with a small area on right 4th toe
approximately 2 weeks ago, he was cleaning wound with peroxide and using Neosporin and keeping as clean as possible. He states he believes to open area started from steel tip boots he wears from rubbing. He reports that this week he noticed
increased swelling to the toe and foot so called and made appointment with primary who sent him for foot x-ray and prescribed antibiotics. He states she called him this afternoon when she got results from x-ray and instructed him to report to ED for
evaluation and treatment. Patient denies any fever, chills, cough, shortness of breath, chest pain, nausea, vomiting, diarrhea or urinary symptoms.
Seen by podiatry and underwent right fourth toe middle phalanx more resection and primary closure, was given IV Unasyn, will be discharged on oral Augmentin.
Seen by vascular surgery, lower extremity vascular study came back :
1. Right ankle-brachial index 1.08, within normal limits. Right toe brachial index 0.75.
2. Left ankle brachial index 0.89, mildly depressed. Left toe brachial index 0.48.
Okay for discharge as per podiatry and vascular
Assessment/plan:
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
On IV Unasyn
Blood cultures no growth
Status post right 4th toe middle phalanx bone resection and primary closure by podiatry.
Podiatry consulted vascular surgery and plan to obtain baseline arterial studies
PT eval postop
Preop eval:
Did preop evaluation yesterday and he was okay to go for surgery.
Reviewed EKG.
Acute kidney injury:
Improved
Hypertension:
Continue lisinopril and hydrochlorothiazide
Hyperlipidemia:
Continue atorvastatin 10 mg p.o. nightly
Diabetes mellitus type 2:
Continue insulin sliding scale
Restart metformin
Monitor blood sugars and adjust medications accordingly
DVT prophylaxis:
Start Lovenox SQ
CODE STATUS:
Full code
Total time spent on today's encounter was 65 minutes which included time spent in counseling the patient/family regarding diagnosis and treatment plan as listed above, goals of care, and symptom management. Case was discussed with nursing staff,
specialists, and care coordinators/case management. All labs and imaging personally reviewed by me. Remainder the time spent in detailed review of previous records, lab data, imaging, and other medical provider documentation.
Anticipated Discharge: Today
Subjective/Interval History
-
Date of Service: December 26, 2024
Patient seen and examined at bedside, denies any chest pain or shortness of breath, no abdominal pain, no nausea, no vomiting, no diarrhea or constipation.
Vascular study came back normal, will discharge home.
Objective Data
-
Labs:
Laboratory Results
12/26/24
06:45
WBC 6.1
Hgb 13.1
Hct 37.8 L
Plt Count 209
Sodium 138
Potassium 4.2
Chloride 103
Carbon Dioxide 25
BUN 19
Creatinine 1.0
Glucose 147 H
Calcium 9.5
Vital Signs:
Vital Signs
Temp Pulse Resp BP Pulse Ox
98 F 61 18 161/78 98
12/26/24 07:29 12/26/24 07:29 12/26/24 07:29 12/26/24 07:29 12/26/24 07:29
I&O
12/25/24 12/26/24 12/27/24
06:59 06:59 06:59
Intake Total 2200 / 2200 2079 / 2079
Output Total 1600 / 1600
Balance 600 / 600 2079
Physical Exam
-
General: Well Developed, Well Nourished, No Apparent Distress and Comfortable
HEENT: Normocephalic, Atraumatic, Moist Mucous Membranes, No Ptosis, PERRLA and Nose Appears Normal
Respiratory: Clear to Auscultation and Non Labored Respirations
Cardiac: Regular Rhythm and S1/S2
Breast: Deferred by me
GI: Soft, Nontender, Nondistended and Normal Bowel Sounds
Genito-urinary: No Costovertebral Tender
Musculoskeletal: No Clubbing, No Cyanosis, No Edema and Other (Right foot dressing)
Skin: Warm
Neuro: Awake, Alert, Oriented, AO x 3 and No Motor Deficits
Psych: Calm
Data Reviewed
-
Diagnostic Radiology: Image personally visualized and interpreted and Report Reviewed by me
CT Scan: Image personally visualized and interpreted and Report Reviewed by me
Ultrasound: Image personally visualized and interpreted and Report Reviewed by me
MRI: Image personally visualized and interpreted and Report Reviewed by me
Medical Tests (Nuc Med, Echo etc): Image personally visualized and interpreted and Report Reviewed by me
Labs: Labs Reviewed by me
Old Records: Reviewed
[2024-12-26] MEDS: NOVOLOG FLEXPEN-LOW RESISTANCE 2 UNITS SC (12:54)
--- NOTE | 2024-12-26 12:56 | W.PN.ID1 ---
Addendum entered and electronically signed by Yaa Edwards MD 12/27/24 12:58:
add doxycycline for CONS 100 mg PO BID x4 weeks
Original Note:
Date of Service
Date of Service: December 26, 2024
Today's Communication
- switch to IV ceftriaxone and oral metronidazole to complete a 4 week course from the surgery 12/24-01/20
- weekly labs to be sent to our office
- PICC placement
- appreciate podiatry & IM service; follow up with podatiry
Assessment / Plan
Cellulitis of the right 4th toe; possible diabetic foot infection
Residual Osteomyelitis of the resection site is likely
Dm2 with excellent control
- residual osteomyelitis is suspected
- cultures obtained on antibiotics cannot rule out osteomyelitis, though if positive from the resection margin then it would 1) direct therapy and 2) confirm residual osteomyelitis
- pathology is pending, note that the bone was friable and its not a clean margin
- blood cultures x2 are no growth to date
- JASON resulted, seen by vascular surgery
- a1c 6.6 - excellent control
- switch to IV ceftriaxone and oral metronidazole to complete a 4 week course from the surgery 12/24-01/20
- weekly labs to be sent to our office
- PICC placement
- appreciate podiatry & IM service; follow up with podatiry
Chief Complaint
-: Other (diabetic foot infection)
Subjective / Review of Systems
afebrile
bp stable
Vital Signs / Physical Exam
Vital Signs
Vital Signs
Temp Pulse Resp BP Pulse Ox
98 F 61 18 161/78 98
12/26/24 07:29 12/26/24 07:29 12/26/24 07:29 12/26/24 07:29 12/26/24 07:29
Physical Exam
Constitutional: No Acute Distress
Cardiovascular: Regular Rate and S1/S2; Negative Murmur or Rub
Pulmonary: Clear and Symmetric; Negative Wheezes or Rales
Gastrointestinal: Soft, Non Tender, Non Distended and Normal Bowel Sounds
Skin: Warm and Dry; Negative Rash or Jaundice
Wound: Other (dressing clean, dry, intact)
Objective Data
Lab Data
Lab Results
12/26/24 06:45
12/26/24 06:45
Estimated Creat Clear 90 ml/min 12/26/24 06:45
Total Bilirubin 0.5 mg/dl (0.2-1.3) 12/25/24 06:57
AST 17 U/L (17-59) 12/25/24 06:57
ALT 17 U/L (0-50) 12/25/24 06:57
Alkaline Phosphatase 59 U/L (38-126) 12/25/24 06:57
Most recent labs reviewed.
Micro Results:
12/24/24 16:30 Anaerobic Culture - Preliminary
Toe Culture pending. Anaerobic cultures are examined after 3
days incubation. Additional information to follow.
12/24/24 16:30 Wound Culture - Preliminary
Toe No growth
Gram Stain - Preliminary
12/24/24 16:30 Tissue Culture - Preliminary
Bone Gram Stain - Preliminary
12/23/24 17:05 Blood Culture - Preliminary
Blood/Venous No Growth in 48 hours- Final report to follow
12/23/24 17:05 Blood Culture - Preliminary
Blood/Venous No Growth in 48 hours- Final report to follow
Care Review
Plan reviewed with: Physician (Dr Drake and Dr Baxter)
[2024-12-26 15:35] VITALS: BP 139/69
[2024-12-26] MEDS: STERILE WATER FOR INJECTION 20 ML IV (15:56)
[2024-12-26] MEDS: ROCEPHIN 2000 MG IV (15:56)
--- NOTE | 2024-12-26 15:56 | CM ---
Per ID, patient will require continuous IV abx at d/c. Script provided, copy placed in chart.
CM met w/ patient bedside, agreeable to [facility] as infusion company
CM faxed script and clinicals to [facility]. CM will await schneider for out of pocket cost for medication and VN coverage
PICC placed today
Plan: Home w/ IV abx
[2024-12-26 16:55] LABS: Glucose - Point of Care 175 mg/dl (70-99)
[2024-12-26] MEDS: LOVENOX 40 MG SC (17:19)
[2024-12-26] MEDS: FLAGYL 500 MG PO ×2 (17:19→22:13)
[2024-12-26] MEDS: NOVOLOG FLEXPEN-LOW RESISTANCE 1 UNITS SC (18:09)
[2024-12-26 19:55] LABS: Hepatitis C Antibody Negative (Negative)
[2024-12-26] MEDS: LIPITOR 10 MG PO (20:47)
[2024-12-26 21:52] LABS: Glucose - Point of Care 186 mg/dl (70-99)
[2024-12-26 23:28] VITALS: BP 121/72
[2024-12-27 07:50] VITALS: BP 133/79
[2024-12-27 08:08] LABS: Glucose - Point of Care 159 mg/dl (70-99)
--- NOTE | 2024-12-27 11:14 | CM ---
Addendum entered by Ta Gonzalez 12/27/24 12:57:
Confirmed w/ Eduardo that delivery will occur tonight. Nurse will come to home tomorrow for teaching.
Patient will d/c after afternoon dose
Patient, nurse and hospitalist updated
Original Note:
CM spoke w/ Eduardo/[facility] infusion. Per Eduardo, patient will be covered at 100% for medication, supplies and nursing. Patient may be able to d/c today after abx dose and teaching may likely happen at patient's home as there may not be any
clinical nurses in the field to complete teaching bedside. Eduardo stated clinical team will meet this morning and will be able to confirm w/ CM if teaching will occur in the home and confirm delivery of medication for tomorrow.
CM updated patient bedside, he is eager to go home and understandable of CM awaiting confirmation from [facility].
Updated hospitalist, d/c order has been placed
Plan: Home w/ IV abx through [facility]
--- NOTE | 2024-12-27 11:17 | W.PN.ID1 ---
Date of Service
Date of Service: December 27, 2024
Today's Communication
- switch to IV ceftriaxone, oral metronidazole, oral doxycycline to complete a 4 week course from the surgery 12/24-01/20
- weekly labs to be sent to our office
- PICC in place
Assessment / Plan
Cellulitis of the right 4th toe; possible diabetic foot infection
Residual Osteomyelitis of the resection site is likely
Dm2 with excellent control
- residual osteomyelitis is suspected
- cultures obtained on antibiotics cannot rule out osteomyelitis, though if positive from the resection margin then it would 1) direct therapy and 2) confirm residual osteomyelitis
- pathology is pending, note that the bone was friable and its not a clean margin
- blood cultures x2 are no growth to date
- JASON resulted, seen by vascular surgery
- a1c 6.6 - excellent control
- switch to IV ceftriaxone, oral metronidazole, oral doxycycline to complete a 4 week course from the surgery 12/24-01/20
- weekly labs to be sent to our office
- PICC in place
- appreciate podiatry & IM service; follow up with podatiry
Chief Complaint
-: Other (diabetic foot infection)
Subjective / Review of Systems
afebrile
bp stable
tolerating current therapies
Vital Signs / Physical Exam
Vital Signs
Vital Signs
Temp Pulse Resp BP Pulse Ox
97.9 F 67 16 133/79 99
12/27/24 07:50 12/27/24 07:50 12/27/24 07:50 12/27/24 07:50 12/27/24 07:50
Physical Exam
Constitutional: No Acute Distress
Cardiovascular: Regular Rate and S1/S2; Negative Murmur or Rub
Pulmonary: Clear and Symmetric; Negative Wheezes or Rales
Gastrointestinal: Soft, Non Tender, Non Distended and Normal Bowel Sounds
Skin: Warm and Dry; Negative Rash or Jaundice
Objective Data
Lab Data
Lab Results
12/26/24 06:45
12/26/24 06:45
Estimated Creat Clear 90 ml/min 12/26/24 06:45
Total Bilirubin 0.5 mg/dl (0.2-1.3) 12/25/24 06:57
AST 17 U/L (17-59) 12/25/24 06:57
ALT 17 U/L (0-50) 12/25/24 06:57
Alkaline Phosphatase 59 U/L (38-126) 12/25/24 06:57
Most recent labs reviewed.
Micro Results:
12/24/24 16:30 Tissue Culture - Preliminary
Bone Gram Stain - Preliminary
12/24/24 16:30 Wound Culture - Preliminary
Toe No growth
Gram Stain - Preliminary
12/23/24 17:05 Blood Culture - Preliminary
Blood/Venous No Growth in 72 hours- Final report to follow
12/23/24 17:05 Blood Culture - Preliminary
Blood/Venous No Growth in 72 hours- Final report to follow
12/24/24 16:30 Anaerobic Culture - Preliminary
Toe Culture pending. Anaerobic cultures are examined after 3
days incubation. Additional information to follow.
Care Review
Plan reviewed with: Physician (Dr Brock - culture results)
[2024-12-27] MEDS: ZESTRIL 20 MG PO (11:23)
[2024-12-27] MEDS: FLAGYL 500 MG PO (11:23)
[2024-12-27] MEDS: GLUCOPHAGE 1000 MG PO (11:23)
[2024-12-27] MEDS: ORETIC 25 MG PO (11:23)
[2024-12-27] MEDS: ASPIR LOW (ENTERIC COATED) 81 MG PO (11:23)
[2024-12-27] MEDS: NOVOLOG FLEXPEN-LOW RESISTANCE SC ×2 (11:25→12:39)
[2024-12-27 11:36] LABS: Glucose - Point of Care 253 mg/dl (70-99)
--- NOTE | 2024-12-27 13:04 | W.PN.HOSP.TC ---
Today's Communication/Plan
-
Discharge home today
Assessment / Plan
Assessment / Plan
Impression:
Patient is a 64-year-old male with past medical history significant for hypertension and DM II who presented to [facility] ED for evaluation of right fourth toe pain and swelling. Patient reports that he started with a small area on right 4th toe
approximately 2 weeks ago, he was cleaning wound with peroxide and using Neosporin and keeping as clean as possible. He states he believes to open area started from steel tip boots he wears from rubbing. He reports that this week he noticed
increased swelling to the toe and foot so called and made appointment with primary who sent him for foot x-ray and prescribed antibiotics. He states she called him this afternoon when she got results from x-ray and instructed him to report to ED for
evaluation and treatment. Patient denies any fever, chills, cough, shortness of breath, chest pain, nausea, vomiting, diarrhea or urinary symptoms.
Seen by podiatry and underwent right fourth toe middle phalanx more resection and primary closure, was given IV Unasyn, will be discharged on oral Augmentin.
Seen by vascular surgery, lower extremity vascular study came back :
1. Right ankle-brachial index 1.08, within normal limits. Right toe brachial index 0.75.
2. Left ankle brachial index 0.89, mildly depressed. Left toe brachial index 0.48.
Okay for discharge as per podiatry and vascular
Infectious pending Rocephin/Flagyl/doxycycline and discharge for 4 weeks
PICC line placed, case picker consulted for arrangement for home infusion.
Assessment/plan:
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
On IV Unasyn
Blood cultures no growth
Status post right 4th toe middle phalanx bone resection and primary closure by podiatry.
Podiatry consulted vascular surgery and plan to obtain baseline arterial studies
PT eval postop
12/27
Okay for discharge as per podiatry and vascular
Infectious pending Rocephin/Flagyl/doxycycline and discharge for 4 weeks
PICC line placed, case picker consulted for arrangement for home infusion.
Preop eval:
Did preop evaluation yesterday and he was okay to go for surgery.
Reviewed EKG.
Acute kidney injury:
Improved
Hypertension:
Continue lisinopril and hydrochlorothiazide
Hyperlipidemia:
Continue atorvastatin 10 mg p.o. nightly
Diabetes mellitus type 2:
Continue insulin sliding scale
Restart metformin
Monitor blood sugars and adjust medications accordingly
DVT prophylaxis:
Start Lovenox SQ
CODE STATUS:
Full code
Total time spent on today's encounter was 65 minutes which included time spent in counseling the patient/family regarding diagnosis and treatment plan as listed above, goals of care, and symptom management. Case was discussed with nursing staff,
specialists, and care coordinators/case management. All labs and imaging personally reviewed by me. Remainder the time spent in detailed review of previous records, lab data, imaging, and other medical provider documentation.
Anticipated Discharge: Today
Subjective/Interval History
-
Date of Service: December 27, 2024
Patient seen and examined at bedside, denies any chest pain or shortness of breath, no abdominal pain, no nausea, no vomiting, no diarrhea or constipation.
Preliminary OR tissue culture shows coag negative staph
infectious disease recommending doxycycline on discharge.
Objective Data
-
Vital Signs:
Vital Signs
Temp Pulse Resp BP Pulse Ox
97.9 F 67 16 133/79 99
12/27/24 07:50 12/27/24 11:23 12/27/24 07:50 12/27/24 11:23 12/27/24 07:50
I&O
12/26/24 12/27/24 12/28/24
06:59 06:59 06:59
Intake Total 2079 800 / 800
Balance 2079 800 / 800
Physical Exam
-
General: Well Developed, Well Nourished, No Apparent Distress and Comfortable
HEENT: Normocephalic, Atraumatic, Moist Mucous Membranes, No Ptosis, PERRLA and Nose Appears Normal
Respiratory: Clear to Auscultation and Non Labored Respirations
Cardiac: Regular Rhythm and S1/S2
Breast: Deferred by me
GI: Soft, Nontender, Nondistended and Normal Bowel Sounds
Genito-urinary: No Costovertebral Tender
Musculoskeletal: No Clubbing, No Cyanosis, No Edema and Other (Right foot dressing)
Skin: Warm
Neuro: Awake, Alert, Oriented, AO x 3 and No Motor Deficits
Psych: Calm
Data Reviewed
-
Diagnostic Radiology: Image personally visualized and interpreted and Report Reviewed by me
CT Scan: Image personally visualized and interpreted and Report Reviewed by me
Ultrasound: Image personally visualized and interpreted and Report Reviewed by me
MRI: Image personally visualized and interpreted and Report Reviewed by me
Medical Tests (Nuc Med, Echo etc): Image personally visualized and interpreted and Report Reviewed by me
Labs: Labs Reviewed by me
Old Records: Reviewed
--- NOTE | 2024-12-27 13:09 | W.DCSUMMARY ---
Discharge Summary
Discharge Data
Date of Admission: 12/23/24
Date of Discharge: 12/27/24
-
Pending Results: No
Hospital Course
Hospital course
Patient is a 64-year-old male with past medical history significant for hypertension and DM II who presented to [facility] ED for evaluation of right fourth toe pain and swelling. Patient reports that he started with a small area on right 4th toe
approximately 2 weeks ago, he was cleaning wound with peroxide and using Neosporin and keeping as clean as possible. He states he believes to open area started from steel tip boots he wears from rubbing. He reports that this week he noticed
increased swelling to the toe and foot so called and made appointment with primary who sent him for foot x-ray and prescribed antibiotics. He states she called him this afternoon when she got results from x-ray and instructed him to report to ED for
evaluation and treatment. Patient denies any fever, chills, cough, shortness of breath, chest pain, nausea, vomiting, diarrhea or urinary symptoms.
Seen by podiatry and underwent right fourth toe middle phalanx more resection and primary closure, was given IV Unasyn, will be discharged on oral Augmentin.
Seen by vascular surgery, lower extremity vascular study came back :
1. Right ankle-brachial index 1.08, within normal limits. Right toe brachial index 0.75.
2. Left ankle brachial index 0.89, mildly depressed. Left toe brachial index 0.48.
Okay for discharge as per podiatry and vascular
Infectious pending Rocephin/Flagyl/doxycycline and discharge for 4 weeks
PICC line placed, heel caser consulted for arrangement for home infusion.
During hospitalization patient was treated from the [facility]
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
On IV Unasyn
Blood cultures no growth
Status post right 4th toe middle phalanx bone resection and primary closure by podiatry.
Podiatry consulted vascular surgery and plan to obtain baseline arterial studies
PT eval postop
4/15
Okay for discharge as per podiatry and vascular
Infectious pending Rocephin/Flagyl/doxycycline and discharge for 4 weeks
PICC line placed, heel caser consulted for arrangement for home infusion.
Preop eval:
Did preop evaluation yesterday and he was okay to go for surgery.
Reviewed EKG.
Acute kidney injury:
Improved
Hypertension:
Continue lisinopril and hydrochlorothiazide
Hyperlipidemia:
Continue atorvastatin 10 mg p.o. nightly
Diabetes mellitus type 2:
Continue insulin sliding scale
Restart metformin
Monitor blood sugars and adjust medications accordingly
DVT prophylaxis:
Start Lovenox SQ
CODE STATUS:
Full code
Total time spent on today's encounter was 40 minutes which included time spent in counseling the patient/family regarding diagnosis and treatment plan as listed above, goals of care, and symptom management. Case was discussed with nursing staff,
specialists, and care coordinators/case management. All labs and imaging personally reviewed by me. Remainder the time spent in detailed review of previous records, lab data, imaging, and other medical provider documentation.
Anticipated Discharge: Today
Discharge Plan
-
Patient Disposition: Home with Home Care
Discharge Diagnosis/Procedures: Acute osteomyelitis, diabetes
Condition: Good
Diet: Diabetic, Carb Controlled
Activity: As tolerated
Driving Restrictions: As prior to admission
Other Services: VN, PT and OT
Referrals:
Danny Verde MD [Family Provider] -
Prescriptions:
New
(DME) physical therapy/Occupational Therapy
See Rx Instructions .Route .MEDSUPPLY Qty: 1 0RF
Rx Instructions:
outpatient PT/OT
3 times weekly.
Diagnosis: Acute osteomyelitis
ceftriaxone 2 gram Recon Soln
2,000 mg IV Q24H 28 Days Qty: 0 0RF
(DME) Weekly CBC, CMP
See Rx Instructions .ROUTE .MEDSUPPLY Qty: 1 0RF
Rx Instructions:
As directed while receiving IV antibiotic, result to be faxed to PCP and infectious
doxycycline hyclate 100 mg tablet
100 mg PO BID Qty: 56 0RF
Rx Instructions:
For 4 weeks
metronidazole 500 mg tablet
500 mg PO Q8H Qty: 84 0RF
Continued
metformin 1,000 mg Tablet
1,000 mg PO BID@0800,1700
glipizide 10 mg Tablet
10 mg PO BID@0800,1700
aspirin 81 mg Tablet,Delayed Release (Dr/Ec)
81 mg PO DAILY
atorvastatin 10 mg Tablet
10 mg PO HS
lisinopril-hydrochlorothiazide 20-25 mg Tablet
1 tab PO BID
testosterone 1 % (50 mg/5 gram) Gel In Packet
1 packet TRANSDERMAL DAILY
Discharge Orders:
Discharge Patient (As Directed); Ordered 12/27/24
Ordered By: Delmy Drake
Discharge Date and Time
Print Language: CZECH
[2024-12-27] MEDS: ROCEPHIN 2000 MG IV (13:17)
[2024-12-27] MEDS: STERILE WATER FOR INJECTION 20 ML IV (13:18)
== END 2024-12-27 14:02 | disposition home or self-care (01) | DRG 629 ==
LOC: 4 EAST ACU 21:41
PROVIDERS: Emergency Medicine; Hospitalist; Nurse Practitioner Family; Radiology Vascular & Interventional Radiology; ADMITTING PHYSICIAN Internal Medicine; ATTENDING PHYSICIAN General Practice; CONSULT PHYSICIAN Podiatrist Foot & Ankle Surgery; CONSULT PHYSICIAN Student in an Organized Health Care Education/Training Program; CONSULT PHYSICIAN Surgery Vascular Surgery; EMERGENCY PHYSICIAN Student in an Organized Health Care Education/Training Program; FAMILY PHYSICIAN Family Medicine
PROC: 0QBQ0ZZ Excision of Right Toe Phalanx, Open Approach (ICD-10-PCS; 2024-12-24)
PROC: 02HV33Z Insertion of Infusion Device into Superior Vena Cava, Percutaneous Approach (ICD-10-PCS; 2024-12-26)
PROC: B5181ZA Fluoroscopy of Superior Vena Cava using Low Osmolar Contrast, Guidance (ICD-10-PCS; 2024-12-26)
DX: E11.628 Type 2 diabetes mellitus with other skin complications (principal); M86.171 Other acute osteomyelitis, right ankle and foot; N17.9 Acute kidney failure, unspecified; E11.40 Type 2 diabetes mellitus with diabetic neuropathy, unspecified; L03.031 Cellulitis of right toe; I10 Essential (primary) hypertension; E78.00 Pure hypercholesterolemia, unspecified; Z79.82 Long term (current) use of aspirin; Z87.891 Personal history of nicotine dependence; Z79.84 Long term (current) use of oral hypoglycemic drugs; E11.621 Type 2 diabetes mellitus with foot ulcer; L97.519 Non-pressure chronic ulcer of other part of right foot with unspecified severity; W22.8XXA Striking against or struck by other objects, initial encounter; Z79.899 Other long term (current) drug therapy
CPT/HCPCS: 71045; 73630; 80048; 80053; 82962; 83036; 85025; 85027; 86803; 87040; 87070; 87075; 87147; 87176; 87186; 87205; 93005; 93922; 96365; 96367; 97116; 97162; 99284

== ENCOUNTER → 2025-09-11 12:47 | Outpatient (REF) | payer OTHER, SELFPAY | LOC: RAD 12:47 | PROVIDERS: FAMILY PHYSICIAN Family Medicine | DX: R06.02 Shortness of breath (principal); J18.9 Pneumonia, unspecified organism | CPT/HCPCS: 71046 ==